=== PATIENT | female | born 1960 | race Caucasian/White ===

== ENCOUNTER 2022-01-01 12:40 | Emergency (ER) | payer MEDICAID, SELFPAY ==
[2022-01-01 12:46] VITALS: BP 104/85; PULSE 65; TEMP 36.7; O2SAT 97
--- NOTE | 2022-01-01 13:00 | DI.RAD_ITS ---
Exam(s) XR KNEE LT 3V AP,LAT,RAVEN EXAM: XR KNEE LT 3V AP,LAT,RAVEN CLINICAL HISTORY: pain medially, swelling. TECHNIQUE: 2D digital imaging was performed. COMPARISON: No exams were available for comparison FINDINGS: Three views of the left knee reveal no evidence of fracture. There is small amount of increased join t fluid. No obvious degenerative changes. Bone density normal. No osseous lesions. Incidentally noted is soft tissue swelling medial of the knee, without evidence of radiopaque foreign body nor calcification at this level. IMPRESSION: There appears to be soft tissue swelling in the subcutaneous tissues medial of the knee. No fracture. No prominent joint effusion DATA REPOSITORY: RADIATION DOSE DELIVERED:
--- NOTE | 2022-01-01 13:09 | W.ED.GENAD ---
Discharge Plan Disposition Patient Disposition: HOME Condition: Stable Discharge Details Clinical Impression: Effusion of knee, Internal derangement of knee Primary Care Provider: Unknown,Unknown ED Provider: Nanette Mcknight Home Meds and New Rx's Prescriptions: New diclofenac sodium 3 % gel 1 applic topical BID Qty: 100 0RF Discharge Instructions Additional Instructions: Please follow-up with the orthopedist Voltaren gel Take ibuprofen 400 mg every 8 hours with food Take Tylenol for breakthrough pain I am giving a very small amount of opiate analgesia, this medication is addictive and can cause constipation I recommend picking up a cane to pharmacy to take the pressure off the affected knee Apply ice or heat whatever feels better 2 hours after Please return earlier should you have new or worsening complaints Referrals: Too Bishop MD [ [facility] STAFF PHYSICIAN] - Discharge Data Discharge Date/Time-TO BE ENTERED AT DEPARTURE: 01/01/22 15:09 Medical Decision Making Given the chronicity of patient's symptoms, she is referred to orthopedics She is given Voltaren gel No evidence of septic joint No overlying erythema Her x-ray did not show significant acute abnormality Have knee immobilizer at home Have a cane which she will use Return precautions discussed and patient expressed understanding Medical Records Medical records reviewed: Yes I reviewed the patient's medical records. HPI General Date/Time Provider Initiated Documentation: 01/01/22 12:53. HPI Narrative: this 61-year-old female who is otherwise healthy presents for left knee pain. Patient states she has had similar pain in the past but is worsening. She denies any chest pain or shortness of breath. She denies any dizziness or weakness. She states that the pain radiates up and down her leg. Is predominantly in her kneecap. Worse when with flexion and extension. She denies any fever or chills. Denies history of IV drug abuse. Denies history of coagulopathy. She denies any skin discoloration or swelling. She been attempting to wear a knee brace without relief in her symptoms. Related Data Home Medications Medication Instructions Recorded Confirmed diclofenac sodium 3 % topical gel 1 applic TOPICAL BID #100 g 01/01/22 Previous Rx's Medication Instructions Recorded diclofenac sodium 3 % topical gel 1 applic TOPICAL BID #100 g 01/01/22 Allergies Allergy/AdvReac Type Severity Reaction Status Date / Time No Known Allergies Allergy Unverified 01/01/22 12:51 General Stated Complaint: Orthopedic SARTHAK: 3 Review of Systems All systems reviewed & are unremarkable except as noted in HPI and below PFSH All Active Problems (Updated 01/01/22 @ 14:51 by GEMMA Guzman) Effusion of knee (Acute) Internal derangement of knee (Acute) Social History Smoking/Tobacco Use Status: Former Tobacco Use Smoking risk assessment performed?: Yes Alcohol Intake: former Drug use: Never Substance use type: does not use Do you feel safe at home: Yes Do you feel safe in your relationship?: Yes Exam Const General: cooperative, comfortable and no acute distress Extrem Other: Distal pulses intact, no popliteal tenderness, no swelling noted, tenderness medially, no joint instability No overlying erythema, no crepitus No tenderness to left hip, groin, or left ankle Course Vital Signs Vital signs: Vital Signs Temperature 36.7 C 01/01/22 12:46 Pulse 65 01/01/22 12:46 Blood Pressure 104/85 01/01/22 12:46 Pulse Oximetry 97 01/01/22 12:46 Temperature 36.7 C 01/01/22 12:46 Temperature Source Temporal Artery Scan 01/01/22 12:46 Pulse 65 01/01/22 12:46 Respiratory Effort Non-Labored 01/01/22 12:52 Blood Pressure 104/85 01/01/22 12:46 Blood Pressure Position Sitting 01/01/22 12:46 Pulse Oximetry 97 01/01/22 12:46 Oxygen Delivery Method Room Air 01/01/22 12:46 Oxygen Flow Rate 0 01/01/22 12:46
[2022-01-01] MEDS: HYDROcodone 5/Acetaminophen 325 TAB PO (13:15)
[2022-01-01 15:05] VITALS: BP 104/85; PULSE 65; TEMP 36.7; O2SAT 97
== END 2022-01-01 15:09 | disposition home or self-care (01) ==
PROVIDERS: Emergency Provider Physician Assistant
DX: M25.462 Effusion, left knee (principal); M23.92 Unspecified internal derangement of left knee
CPT/HCPCS: 73562; 99283

== ENCOUNTER 2022-01-25 15:26 | Outpatient (REF) | payer MEDICAID, SELFPAY ==
--- NOTE | 2022-01-25 14:50 | PAPFT_PTH ---
PATIENT: Rosie Santiago LOC: [facility]#:[id number] AGE/SX: 61/F ROOM: RE01/25/[address]: Gael Barksdale : 1960 BED: DIS: 01/25/2022 SPEC #: [id number] RECD: 01/28/22 13:10 STATUS: SHARIF REQ #: [id number] RALPH: 01/25/22 14:[address]: Gael Barksdale DEPT: [facility] Cytology RECD BY: Nanette Tanner ENTERED: 01/28/22 13:11 SP TYPE: PAPFT OTHR DR: Unknown,Unknown Tissues: 1 - CX/ENDOCX FOR PAP SMEARS Procedures: PAP THIN PREP/UVM Screening HPV DNA PROBE Comments: [id number]
== END 2022-01-25 15:27 | disposition home or self-care (01) ==
LOC: NCHCN 15:26
PROVIDERS: Visit Provider Family Medicine
DX: Z12.4 Encounter for screening for malignant neoplasm of cervix (principal); Z11.51 Encounter for screening for human papillomavirus (HPV); Z01.419 Encounter for gynecological examination (general) (routine) without abnormal findings
CPT/HCPCS: 88142; 87624

== ENCOUNTER 2022-02-06 02:07 | Outpatient (CLI) | payer MEDICAID, SELFPAY ==
--- NOTE | 2022-02-06 07:00 | DI.MRI_ITS ---
Exam(s) MR LOWER JOINT LT WO EXAM: MR LOWER JOINT LT WO CLINICAL HISTORY: continued Left knee pain,INTERNAL DERANGEMENT, M23.90. TECHNIQUE: Multiplanar multisequence MRI was performed. COMPARISON: CR XR KNEE LT 3V AP,LAT,RAVEN from 01/01/2022 FINDINGS: BONES: Contusion medial femoral condyle. Minimal edema medial tibial plateau. JOINTS: A moderate-sized effusion is present. Cartilage: Thinning and irregularity over the medial femoral condyle and medial tibial plateau. Smal l linear defect at the patellar apex. TENDONS: Extensor mechanism: Unremarkable. Medial retinaculum: Unremarkable. Lateral retinaculum: Unremarkable. Popliteus: Unremarkable. MUSCLES: Unremarkable. MENISCI: The medial meniscus is somewhat peripherally displaced and shows a horizontal tear of the posterior horn and body.. The lateral meniscus is unremarkable. SOFT TISSUES: Gauirre's cyst, 6.5 cm in length. LIGAMENTS: Anterior Cruciate: U some edema and near tibial attachment, question partial tear.. Posterior Cruciate: Unremarkable. Medial Collateral:Edema near femoral attachment. No full-thickness tear. Lateral Collateral ligament complex: Unremarkable. IMPRESSION: Medial meniscal tear. Question partial tear anterior cruciate ligament Sprain medial collateral ligament. Contusion medial femoral condyle and medial tibial plateau. Aguirre's cyst. DATA REPOSITORY:
== END 2022-02-06 02:27 ==
PROVIDERS: Visit Provider Student in an Organized Health Care Education/Training Program
DX: M25.562 Pain in left knee; M23.8X2 Other internal derangements of left knee; M25.462 Effusion, left knee; S83.242A Other tear of medial meniscus, current injury, left knee, initial encounter; S83.412A Sprain of medial collateral ligament of left knee, initial encounter; M71.22 Synovial cyst of popliteal space [Baker], left knee
CPT/HCPCS: 73721

== ENCOUNTER 2022-03-04 18:12 | Outpatient (REF) | payer MEDICAID, SELFPAY ==
[2022-03-04 17:37] LABS: HCT 42.1 % (36.0-46.0); HGB 13.7 g/dL (11.2-15.7); MCH 32.2 pg (27.0-33.0); MCHC 32.5 % (32.0-36.0); MCV 99 fL (80-95); MPV 9.4 fL (8.0-11.0); Platelet Count 277 10^3/uL (130-400); RBC 4.25 10^6/uL (3.93-5.22); RDW 12.8 % (11.7-14.6); RDW-SD 46.1 fL; WBC 4.74 10^3/uL (4.4-10.8)
[2022-03-04 18:01] LABS: ALT 13 U/L (14-59); AST 16 U/L (15-37); Albumin 3.4 g/dL (3.4-5.0); Alkaline Phosphatase 57 U/L (46-116); Anion Gap 9.7 mmol/L (3-11); BUN 22 mg/dL (7-18); Bilirubin, Total 0.6 mg/dL (0.2-1.0); CO2 26.3 mmol/L (21.0-32.0); Calcium 8.7 mg/dL (8.5-10.1); Calculated LDL 177 mg/dL (<100); Chloride 108 mmol/L (98-107); Cholesterol 250 mg/dL (<200); Estimated GFR 56.56 (mL/min/1.73m2); Glucose 85 mg/dL (74-106); HDL Cholesterol 58 mg/dL (40-60); Potassium 4.2 mmol/L (3.5-5.1); Sodium 144 mmol/L (136-145); Total Protein 6.6 g/dL (6.4-8.2); Triglyceride 78 mg/dL (<150)
== END 2022-03-04 18:13 | disposition home or self-care (01) ==
LOC: NCHCN 18:12
PROVIDERS: Visit Provider Family Medicine
DX: E66.9 Obesity, unspecified (principal); Z13.220 Encounter for screening for lipoid disorders; Z00.00 Encounter for general adult medical examination without abnormal findings
CPT/HCPCS: 80053; 80061; 85027

== ENCOUNTER 2022-03-13 11:11 | Outpatient (CLI) | payer MEDICAID, SELFPAY ==
--- NOTE | 2022-03-13 09:30 | DI.RAD_ITS ---
Exam(s) XR STANDING ALIGNMENT EXAM: XR STANDING ALIGNMENT CLINICAL HISTORY: standing alignment. TECHNIQUE: 2D digital imaging was performed. COMPARISON: CR XR KNEE LT 3V AP,LAT,RAVEN from 01/01/2022 FINDINGS: There is narrowing of the medial compartments of both knees, this being more prominent on the right s paddy and more moderate on the left side. There are no obvious marginal osteophytes. Lateral compartm ent of both knees exhibit normal height and no marginal osteophytes. Both hips appear unremarkable. SI joints unremarkable. Ankles unremarkable. Bone density normal. No osseous lesions. IMPRESSION: Narrowing of the medial compartments of both knees, more prominent on the right side. DATA REPOSITORY: RADIATION DOSE DELIVERED:
== END 2022-03-13 11:12 | disposition home or self-care (01) ==
LOC: DIORS 11:12
PROVIDERS: PCP Family Medicine; Referring Provider Family Medicine; Visit Provider Student in an Organized Health Care Education/Training Program
DX: M25.861 Other specified joint disorders, right knee; M25.862 Other specified joint disorders, left knee; S83.242A Other tear of medial meniscus, current injury, left knee, initial encounter
CPT/HCPCS: 77073

== ENCOUNTER 2022-04-01 17:29 | Outpatient (REF) | payer MEDICAID, SELFPAY ==
[2022-04-01 21:10] LABS: TSH (W/Ref FT4) 1.21 uIU/mL (0.36-3.74)
[2022-04-03 10:58] LABS: Lyme Ab w Rflx to Lyme Confirm Negative (Negative)
[2022-04-05 00:02] LABS: Anaplasma phagocytophilum Negative (Negative); B. miyamotoi PCR Negative (Negative); Babesia divergens/MO-1 Negative (Negative); Babesia duncani Negative (Negative); Babesia microti Negative (Negative); Ehrlichia chaffeensis Negative (Negative); Ehrlichia ewingii/canis Negative (Negative); Ehrlichia muris eauclairensis Negative (Negative)
== END 2022-04-01 17:30 | disposition home or self-care (01) ==
LOC: NCHCN 17:29
PROVIDERS: Visit Provider Family Medicine
DX: R53.83 Other fatigue (principal); R00.2 Palpitations
CPT/HCPCS: 87798; 84443; 86618

== ENCOUNTER → 2022-04-08 02:12 | Outpatient (CLI) | payer MEDICAID, SELFPAY ==
--- NOTE | 2022-04-08 11:00 | DI.MAMMO_ITS ---
Exam(s) MAMMO SCREENING EXAM: MAMMO SCREENING CLINICAL HISTORY: SCREENING FOR BREAST CANCER Z12.39 TECHNIQUE: Mammograms were interpreted according to the usual protocol including computer analysis w [employer] CAD system, tomosynthesis and C-view imaging. Implant displaced views were performed in addition to the routine views. COMPARISON: None available FINDINGS: The breasts are composed of mainly fatty density , Breast Density category A. There are bilateral subglandular breast implants which appear intact. No suspicious masses or suspicious microcalcifications are seen. No skin thickening or abnormal axillary lymph nodes are seen. IMPRESSION: BI-RADS Category 1, Negative mammogram Yearly screening mammography is recommended. Breast Density - Category A, fatty density. A negative radiographic report should not delay biopsy if a dominant or clinically suspicious mass is present. Up to ten percent of cancers are not identified on mammography. A negative report may reinforce clinical impression. Adenosis and dense breasts may obscure an underlying neoplasm. False positive reports average 6 to 10%. Patient will receive a letter notifying them of these results.
== END ==
PROVIDERS: PCP Family Medicine; Visit Provider Family Medicine
DX: Z12.31 Encounter for screening mammogram for malignant neoplasm of breast (principal); Z98.82 Breast implant status
CPT/HCPCS: 77063; 77067

== ENCOUNTER 2022-04-30 02:53 | Outpatient (CLI) | payer MEDICAID, SELFPAY ==
[2022-04-30 15:22] LABS: Source Nasal/Nares
[2022-05-01 05:39] LABS: COVID-19 PCR Negative (Negative)
== END 2022-04-30 02:54 | disposition home or self-care (01) ==
LOC: LBO 02:53
PROVIDERS: Visit Provider Student in an Organized Health Care Education/Training Program
DX: Z20.822 Contact with and (suspected) exposure to COVID-19 (principal); Z01.818 Encounter for other preprocedural examination
CPT/HCPCS: 87635

== ENCOUNTER 2022-05-02 06:17 | Day surgery (SDC) | payer MEDICAID, SELFPAY ==
--- NOTE | 2022-05-01 14:55 | NUR.NOTE ---
LMx2 unable to reach patient left NPO instructions and arrival time for 0615, Ortho office aware. Nursing Note:
[2022-05-02] VITALS (16 sets, daily range): BP systolic 90–145; BP diastolic 54–89; PULSE 49–65; RESP 10–18; TEMP 36–36.7; O2SAT 93–100; BMI 22.0
[2022-05-02] MEDS: Gabapentin 300 MG CAP (06:41)
--- NOTE | 2022-05-02 07:02 | W.ANESPRE ---
General Info Date of Service Date Performed: 05/02/22 Height: 5 ft 10 in Weight: 69.6 kg Body Mass Index (BMI): 22.0 Surgical Procedure: Operation Date: 05/02/22 08:00 Proposed Procedure Side Surgeon p Medial Unicondylar Knee Arthroplasty, any other indicated procedures including removal of foreign body Left Peter Liu MD Meds Allergies and Home Medications Allergies Allergy/AdvReac Type Severity Reaction Status Date / Time No Known Allergies Allergy Verified 05/02/22 06:25 Home Medication Medication Instructions Recorded Unknown [No Known Home Meds] 03/13/22 Current Visit Medications: Current Medications Generic Name Dose Route Start Last Admin Trade Name Freq PRN Reason Stop Dose Admin Ringer's Solution 1,000 mls @ 100 mls/hr 05/02/22 06:00 IV 05/31/22 23:59 INFUSION JENIFFER Cefazolin Sodium/Dextrose 2 gm in 50 mls @ 100 mls/hr 05/02/22 06:00 Ancef Duplex IVPB 05/02/22 16:00 PREOP JENIFFER Tranexamic Acid 1,000 mg/ 60 mls @ 360 mls/hr 05/02/22 06:00 Sodium Chloride IVPB 05/02/22 16:00 PREOP JENIFFER IV Miscellaneous Supplies 1 each 05/02/22 06:00 Iv Access IV 05/31/22 23:59 DIRECTED JENIFFER Sodium Chloride 0 ml 05/02/22 06:00 Normal Saline Flush 10 Ml Syr IV 05/31/22 23:59 PRN PRN Sodium Chloride 0 ml 05/02/22 06:00 Normal Saline 10 Ml Vial IJ 05/31/22 23:59 DIRECTED PRN Sterile Water 0 ml 05/02/22 06:00 Water,Injection,Sterile 10 Ml Vial IJ 05/31/22 23:59 DIRECTED PRN PFSH Active Problems Active Problems: Problem Status Onset Code Tear of medial meniscus of left knee S83.242A Surgical History Surgical History (Updated 05/02/22 @ 06:25 by Zuleima Charlton) History of appendectomy Tobacco Smoking/Tobacco Use Status: Former Tobacco Use Alcohol Alcohol Intake: former Substance Use Substance use: Never Substance use type: does not use Vital Signs and Lab Results Vital Signs Most Recent Vital Signs in EMR: Most Recent Vital Signs Temp Pulse Resp BP Pulse Ox 36.4 C L 65 18 114/66 97 05/02/22 06:26 05/02/22 06:26 05/02/22 06:26 05/02/22 06:26 05/02/22 06:26 Lab Results Blood Type / Crossmatch: No Data to Display Complete Blood Count: No Data to Display Complete Metabolic Panel: No Data to Display Liver Function Panel: No Data to Display Coagulation Panel: No Data to Display Cardiac Panel: No Data to Display Arterial Blood Gas: No Data to Display Venous Blood Gas: No Data to Display Pancreas Panel: No Data to Display Thyroid Panel: No Data to Display Infectious Disease: Coronavirus (COVID-19)(PCR) Negative (Negative) 04/30/22 13:38 Coronavirus 2019 Source Nasal/Nares 04/30/22 13:38 Blood Cultures: No Data to Display Toxicology Panel: No Data to Display Anesthesia Assessment and Plan Anesthesia History Personal History: No History of Anesthesia Complications Family History: No Family History of Anesthesia Complications Exercise Tolerance Exercise Tolerance: Metabolic Equivalents>4 Pertinent Negatives Pertinent Negatives: No Symptoms of GERD, No Major Cardiovascular Symptoms or Complaints and No Major Pulmonary Symptoms or Complaints (Mild COPD, Quit smoking 10/16 20 year 1/3 pk per day ) Cardiac & Pulmonary Exam Cardiac Exam: Normal S1/S2 Heart Sounds Pulmonary Exam: Clear Bilateral Breath Sounds Implantable Cardiac Device Does patient have a Pacemaker or an ICD?: No Airway Exam Known Difficult Airway: No Mallampati Class: 1 Mouth Opening: Normal (> 3cm) Thyromental Distance: Greater than 3 cm Neck Range of Motion: Full ROM Neck Circumference: Normal Teeth Condition: Normal Dentition Airway Comments: #13 crowned ASA Classification ASA Score: ASA 2 Emergency Case?: No NPO Status NPO Status: NPO Clears >2 hours, Solids >8 hours Anesthesia Plan Resuscitation Status: Full Code Anesthesia Technique: General Anesthesia Airway Planned: LMA Monitors Used: Standard Monitors
[2022-05-02] MEDS: Lactated Ringers 1,000 ML 100 ML IV (07:07)
[2022-05-02] MEDS: Acetaminophen 500 MG TAB 1000 MG PO (07:07)
[2022-05-02] MEDS: Celecoxib 200 MG CAP 400 MG PO (07:08)
[2022-05-02] MEDS: ceFAZolin 2 GM/50 ML BAG IVPB (07:37)
--- NOTE | 2022-05-02 07:49 | W.ANESNERVE ---
Nerve Block Single Injection Procedure Date and Time Date Performed: 05/02/22 Procedure Start: 07:15 Location Where Procedure Performed Procedure Location: Day Surgery Unit (215) Reason Performed: Postoperative Analgesia Requesting Provider: Peter Liu Timeout Performed Timeout Performed: Yes Monitoring Used ECG, Blood Pressure and SpO2 Sterility Sterility: Hand Hygiene, Surgical Cap, Surgical Mask, Sterile Gloves, Eye Protection and Chlorhexidine Sedation Given During Procedure Sedation Given (Indicate Dose Given): Versed IV Dose:: 2 mg Patient Mental Status Patient Mental Status: Sedate with meaningful communication Nerve Block 1st Nerve Block: Laterality: Left Block Type: Adductor Canal Needle / Catheter Used: 100mm SonoPlex II Local Anesthetic Bolus (Indicate Dose Given): Lidocaine used for local infiltration of skin, Injected in 3-5ml increments after negative blood aspiration and Bupivacaine 0.25% Dose:: 15 cc Additives (Indicate Dose Given): None Ultrasound: Sterile probe cover and gel used Ultrasound Image Saved?: Yes Nerve Stimulator: Not Used Paresthesia: None Post Procedure Pain score (0-10): 0 Procedure Tolerated: No Complications and Patient tolerated well Procedure Outcome: Successful Performed By: Rafita Conti
--- NOTE | 2022-05-02 08:00 | ROE_ITS ---
Operative Note Operative Note DATE OF PROCEDURE: 05/02/22 PRE-OP DIAGNOSIS: 1. Left knee medial compartmental arthritis 2. Prepatellar foreign body POST-OP DIAGNOSIS: same PROCEDURE: 1. Left knee medial unicompartmental arthroplasty, CPT # 57786 2. Removal of foreign body, CPT # 13774 The assistant federal public defender was medically required as this procedure involves retraction, protection of neurovascular structures, and manipulation of multiple instruments and implants at the same time, which cannot be done without a skilled assistant federal public defender. SURGEON: Peter Liu [employer] SCHOOL TUTOR: Shaunna Hong ANESTHESIA TYPE: General LMA/ETT and Primary Nerve Block Refer to Anesthesia Record ESTIMATED BLOOD LOSS: 75 TOURNIQUET TIME: 0 COMPLICATIONS: None Patient was transported to: PACU Patient's condition: stable Implants: De[employer] Sigma HP partial knee size 3 metal-backed tibial tray, 7 mm tibial insert fixed bearing, size 3 femoral component Indications: Please see complete medical record for details. 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 Intact ACL. Intact lateral compartment Procedure Description: The patient was taken to the operating room and transferred to the operating room table. General anesthesia was induced. All bony prominences were well- padded. Preoperative antibiotics and 1 g TXA were administered. A tourniquet was placed loosely over padding high on the patient's thigh. The knee and lower extremity were prepped and draped in the usual sterile fashion. The correct patient, procedure, and side of the procedure were all verified prior to incision. A slightly medial of midline longitudinal approach was used to the knee extending from the superior pole the patella to the distal aspect of the tibial tubercle. The quadriceps tendon, patella borders, and patellar tendon were exposed. Knee palpable somewhat mobile loose body anterior to the patella had been digitally localized. It appeared to be a pea-sized calcified fat deposit. There was easily shelled out and removed in entirety. There was no concerning fat, soft tissue or skin extension. It was well circumscribed. A full-thickness arthrotomy was performed starting splitting the quadriceps tendon and leaving a sleeve of tissue on the medial aspect of the patella and taking care to progress along the medial margin the patellar tendon. The MCL was elevated off the proximal medial tibia. The tibial alignment jig was set in place on the anterior medial aspect of the tibia and carefully adjusted to achieve proper alignment in the coronal and sagittal planes. Reciprocating saw was used to create the vertical cut at the medial aspect of the medial tibial eminence taking care to protect the ACL ligament footprint. The transverse cut was then done using the microsagittal saw through the jig taking care to retract and protect the MCL. The bone piece and cut were inspected and found to be appropriate for patient anatomy. A box rasp was used to clean up the cut especially the L component. The 7 mm spacer block was inserted and found to have good equal stability in full extension and 90 degrees of flexion with approximately 2 mm of joint space opening in 20-30 degrees of flexion. With the knee in extension, the tibial trial spacer block was used to cassandra the rotational alignment and anterior extent of the femoral c omponent. The spacer block was removed and the tibia was sized with the depth gauge. The distal femoral cutting block was inserted taking care to orient it appropriately. The cut was done using the saw through the guide. The guide was removed, and the femur was sized with the femoral sizing blocks. The appropriate sized cutting jig was selected. Care was taken to ensure the block was flush with the resected distal femur bone surface. A curved gouge was used to cut the profile of the proximal tip of the femoral prosthesis, cassandra the extent of the anterior chamfer cut, and prevent trochlear cartilage delamination. The posterior cut was done through the jig, the anterior cut was done using the osteotomes, the posterior chamfer cut was done through the jig, and the drill was used to drill the 2 peg holes. The cutting block and bone cuts were removed. The medial meniscus remnant was removed. The femoral component trial was placed in the distal femur and the 7 mm spacer block confirmed appropriate balancing in flexion, extension, and again 2 mm of medial joint space opening in 20-30 degrees of flexion. Tibial template was inserted and the size confirmed to be appropriate. The keel was used by hand to remove bone from the slot and the tibial peg drill was used in the peg hole. The pulse lavage was used to clean the bone surfaces. SmartSet medium viscosity cement was prepared. At the appropriate time during the early working phase, the cement was applied to the backside of the tibial and femoral components. Then, cement was carefully placed and pressurized into the proximal tibia taking care to only have minimal cement posteriorly. The tibial component was inserted at an angle and then impacted directing pressure from posterior to anterior to keep the flow of cement from posterior to anterior. Cement was then applied to the distal femur and the femoral component impacted. Excess cement was removed. The knee was brought into full extension and this position with axial load was maintained until the cement was completely hardened at 18 minutes. Tibial tray separator inserter was removed, and the final tibial insert was inserted and clicked into place. The knee was tested through range of motion found to be stable with equal balancing from full extension to flexion past 90 degrees and a couple millimeters of medial joint space opening in 20-30 degrees of flexion. The wound was copiously irrigated with the pulse lavage and then Irrisept. A combination 266 mg Exparel, 30 mg ketorolac, and 50 mL bupivicaine 0.25% pain injection was widely infiltrated about the knee. Appropriate hemostasis was achieved. The capsule was approximated using #1 Vicryl in a figure-of-8 interrupted fashion and then closed using Stratafix #1 PDS barbed suture in a running fashion. The superficial layers were irrigated. Subcutaneous tissue was closed using 2-0 Monocryl in a buried interrupted fashion. Skin was closed using 3-0 Monocryl in a buried subcuticular fashion. The skin incision was glued and then covered with a Mepilex Ag dressing. An James wrap was applied from the foot up to the thigh. The patient awoke from anesthesia without complication was transferred to the recovery room in stable condition.
--- NOTE | 2022-05-02 10:28 | W.PM.DSUDISC ---
Discharge Plan Disposition Patient Disposition: HOME Condition: Stable Discharge Details Reason For Visit: Left knee surgery Attending Provider: Peter Liu Primary Care Provider: Unknown,Unknown Home Meds and New Rx's Prescriptions: New naproxen 250 mg tablet 250 - 500 mg PO BID PRNQty: 40 0RF Rx Instructions: take with a meal aspirin 81 mg tablet,delayed release (DR/EC) 81 mg PO BID 30 Days Qty: 60 0RF oxycodone 5 mg tablet 5 - 10 mg PO Q4H MDD 30 mg PRN (Reason: moderate to severe pain) Qty: 18 0RF Discharge Instructions Additional Instructions: Surgery: Left medial unicondylar knee replacement Activity: Weightbearing as tolerated. Recommend elevation to minimize swelling and discomfort. Walk as comfort allows. May use walker as needed for a few weeks. Important to restore full knee extension as soon as possible. May gently progress knee flexion over the next few weeks. Do not rest with pillows behind knee to prevent knee from getting stuck bent. Physical therapy prescription will be sent electronically. Prescriptions: Aspirin 81 mg take 1 twice a day to prevent a blood clot 30 days Naproxen 250 mg take 1-2 every 12 hours with a meal as needed for moderate pain Oxycodone 5 mg take 1-2 every 4-6 hours as needed for severe pain You may use fqlr-nbr-mzfeill Tylenol (acetaminophen) as needed for mild pain. These pain medications may be taken all at once or in different combinations as needed. Also, recommend Colace (docusate) as a stool softener as surgery and pain medicine cause constipation. You may try hfwm-snl-rdzmboo diphenhydramine (Benadryl) 25-50 mg nightly as a sleep aid Dressings: Leave Band-Aid in place until follow-up. Keep clean and dry at all times. May remove James wrap tomorrow. May re-wrap with James wrap to help control swelling as needed. Follow-up: 10-[address] Liu You may take off the leg compression James wrap and stockings tomorrow at home. You may also leave them on a few days longer if you have a history of leg swelling or edema. Let us know right away if you develop any redness, drainage, fevers, chest pain, or trouble breathing. Do not drink alcohol or drive for at least 24 hours after anesthesia. Please call the office during business hours with any questions or concerns. Discharge Orders Discharge Orders: Discharge Order (Routine); Ordered 05/02/22 Ordered By: Peter Liu DS: Diagnosis Discharge Diagnosis (1) Arthritis of knee, left: Status: Acute (2) Foreign body of left knee: Status: Acute
[2022-05-02] MEDS: fentaNYL 100 MCG/2 ML VIAL IVP ×3 (11:09→11:33)
[2022-05-02] MEDS: HYDROmorphone 2 MG/ML VIAL IVP ×2 (11:20→11:35)
[2022-05-02] MEDS: Normal Saline 10 ML VIAL IJ (11:20)
--- NOTE | 2022-05-02 11:30 | DI.RAD_ITS ---
Exam(s) XR KNEE LT 2V AP,LAT EXAM: XR KNEE LT 2V AP,LAT CLINICAL HISTORY: Portable in PACU postop. TECHNIQUE: 2D digital imaging was performed. COMPARISON: CR XR KNEE LT 3V AP,LAT,RAVEN from 01/01/2022 FINDINGS: Two views: Postop AP and lateral views reveal satisfactory position alignment of the components of the medial he miarthroplasty. No fracture or loosening evident. IMPRESSION: DATA REPOSITORY: RADIATION DOSE DELIVERED:
[2022-05-02] MEDS: Lactated Ringers 1,000 ML 30 ML IV (11:50)
[2022-05-02] MEDS: Midazolam 2 MG/2 ML VIAL IVP (11:51)
[2022-05-02] MEDS: Naproxen 500 MG TAB PO (15:09)
--- NOTE | 2022-05-02 15:50 | W.ANESPOSTOP ---
Postoperative Evaluation Date, Time and Location Date Performed: 05/02/22 Time Performed: 15:41 Patient Location: Day Surgery Unit Vital Signs Most Recent Imported Vital Signs: Most Recent Vital Signs Temp Pulse Resp BP Pulse Ox 36.6 C 60 16 117/82 99 05/02/22 15:15 05/02/22 15:15 05/02/22 15:15 05/02/22 15:15 05/02/22 15:15 Pain Score Most Recent Pain Score: Most Recent Pain Score Pain Level 8 05/02/22 15:15 Assessment Mental Status: Awake (Alert & Oriented to Patient Baseline) Airway and Respiratory Function: Patent airway with normal (patient baseline) respiratory exam Cardiovascular Function: Hemodynamically Stable Hydration Status: Adequately Hydrated Nausea & Vomiting: No Nausea or Vomiting Pain: Pain is tolerable per patient (Pain level has decreased since up in room, thigh discomfort much reduced. Patient feels comfortable with managing her pain at home) Peripheral Nerve Block: Regional nerve block not resolved at time of post operative discharge
== END 2022-05-02 16:03 | disposition home or self-care (01) ==
PROVIDERS: Visit Provider Student in an Organized Health Care Education/Training Program
PROC: (CPT 27446; principal; 2022-05-02 07:30)
DX: M17.12 Unilateral primary osteoarthritis, left knee (principal); M23.232 Derangement of other medial meniscus due to old tear or injury, left knee; M23.42 Loose body in knee, left knee
CPT/HCPCS: 27446; 27331; 76942; 73560; J0690; J1100; J2250; J2405; J3010

== ENCOUNTER 2022-05-03 20:58 | Emergency (ER) | payer MEDICAID, SELFPAY ==
[2022-05-03] MEDS: HYDROmorphone 2 MG/ML VIAL 1 MG IVP (21:20)
[2022-05-03 21:22] VITALS: BP 127/103; PULSE 67; RESP 20; TEMP 36.7; O2SAT 97
[2022-05-03] MEDS: ACETAMINOPHEN 1,000 MG/100 ML BTL 400 MG IVPB (23:02)
--- NOTE | 2022-05-03 23:55 | W.ED.GENAD ---
Discharge Plan Disposition Patient Disposition: HOME Condition: Improving Discharge Details Clinical Impression: Post-operative pain Primary Care Provider: Unknown,Unknown ED Provider: Carson Will Home Meds and New Rx's Prescriptions: No Action naproxen 250 mg tablet 250 - 500 mg PO BID PRNQty: 40 0RF Rx Instructions: take with a meal aspirin 81 mg tablet,delayed release (DR/EC) 81 mg PO BID 30 Days Qty: 60 0RF oxycodone 5 mg tablet 5 - 10 mg PO Q4H MDD 30 mg PRN (Reason: moderate to severe pain) Qty: 18 0RF Discharge Instructions Additional Instructions: Continue to take your normally prescribed pain medication and you may also use [id number] acetaminophen as directed on the bottle. If you develop fever, significant change in symptoms, or have any further concerns feel free to return to the emergency department for reassessment otherwise follow-up with your orthopedist if not showing signs of improvement. Referrals: Peter Liu MD [ [facility] STAFF PHYSICIAN] - Discharge Data Discharge Date/Time-TO BE ENTERED AT DEPARTURE: 05/04/22 00:01 Medical Decision Making Patient presenting to the emergency department for chief complaint of left knee pain. Patient has been partial knee replacement of her left knee yesterday and was sent home with pain medication. Patient does state that she may have overused it last night while on the nerve block. Today she had increased worsening shooting and burning pain of her left knee and surrounding area. Patient denies fever chills, or other symptoms but does admit that pain is increased by any movement of the extremity. Physical exam is unremarkable and shows no signs of obvious postoperative infection, normal sensation pulm and movement of the toes and distal extremity, no other worrisome findings are noted. Suspect that patient may have overuse the extremity yesterday evening which is now resulted in increased discomfort. We will plan on treating patient's pain with hydromorphone IV Reassessed patient after 1 mg of hydromorphone IV and still continues to have significant pain but is slightly hypotensive with blood pressures in the 80s over upper 40s. No signs of respiratory distress are noted. Will give patient IV fluids and monitor pressure along with pain response Patient reassessed and had some improvement of pain but continues to have soft pressure. Will give IV acetaminophen and again continue to monitor. Reassessed patient and patient did start to note some improvement of pain and discomfort. Do feel that patient is appropriate for discharge. Did discuss with patient realistic activity level along with pain level postoperatively. Did encourage her to ambulate at her discretion but at the same time to ensure plenty of rest. After discussion of diagnosis and plan of care patient has no further needs, questions, or concerns and states clear understanding to return to the emergency department for any worsening symptoms. This documentation was generated using [email or web address] system, please disregard any oddities of phrase or misspellings. Medical Records Medical records reviewed: Yes I reviewed the patient's medical records. HPI General Mode of arrival: wheelchair. Date/Time Provider Initiated Documentation: 05/03/22 21:08. Limitations to Documentation: no limitations. Information obtained by: patient, family, RN notes reviewed and old records reviewed. History of Present Illness 61 year old F presents to the emergency department with the chief complaint of postop knee pain, described as severe, with intensity rated at >10. Quality is described as constant, and is localized to the left and lower extremity. Patient started experiencing this hour(s) (all day) and it has been constant. No relieving factors improve symptom(s), Movement worsens symptoms . Patient notes no other symptoms.. Patient did receive the following treatments prior to arrival, NSAID and other (oxycodone) Related Data Home Medications Medication Instructions Recorded Confirmed aspirin 81 mg tablet,delayed 81 mg PO BID Prevent blood clot 30 05/02/22 release days #60 tabs naproxen 250 mg tablet 250 - 500 mg PO BID PRN #40 tabs 05/02/22 oxycodone 5 mg tablet 5 - 10 mg PO Q4H PRN moderate to 05/02/22 severe pain #18 tabs Previous Rx's Medication Instructions Recorded aspirin 81 mg tablet,delayed 81 mg PO BID Prevent blood clot 30 05/02/22 release days #60 tabs naproxen 250 mg tablet 250 - 500 mg PO BID PRN #40 tabs 05/02/22 oxycodone 5 mg tablet 5 - 10 mg PO Q4H PRN moderate to 05/02/22 severe pain #18 tabs Allergies Allergy/AdvReac Type Severity Reaction Status Date / Time No Known Allergies Allergy Verified 05/02/22 06:25 General Stated Complaint: GenMedical SARTHAK: 3 Review of Systems Narrative: 8systems reviewed and unremarkable except what is marked below. Constitutional Constitutional: Denies chills and Denies fever(s) Musculoskeletal Musculoskeletal: Reports as per HPI Integumentary/Breasts Skin/Breast: Denies erythema and Denies rash PFSH All Active Problems Post-operative pain (Acute) Arthritis of knee, left (Acute) Medical History Foreign body of left knee Tear of medial meniscus of left knee Injected: 01/07/2022 Surgical History History of appendectomy Social History Smoking/Tobacco Use Status: Former Tobacco Use Smoking risk assessment performed?: Yes Alcohol Intake: former Drug use: Daily Substance use type: marijuana Do you feel safe at home: Yes Do you feel safe in your relationship?: Yes Exam Const General: cooperative and not ill appearing Orientation: alert, awake and oriented x3 HENMT Mouth: moist mucous membranes Resp Effort & Inspection: normal respiratory effort, able to speak in complete sentences and no respiratory distress Cardio Rate: regular rate Rhythm: regular rhythm Pulses: posterior tibial pulses present, dorsalis pedis present and normal peripheral pulses Skin General skin exam: no rashes or lesions noted Rashes: no rashes Wounds: wounds noted (Postoperative left knee) Neuro General: patient alert, patient awake, patient oriented x3, moves all extremities and no focal motor deficits Sensory Exam: no sensory deficits noted Extrem General: capillary refill normal and normal exam except as noted Left lower extremity: knee Details: tenderness, swelling and abnormal ROM Course Vital Signs Vital signs: Vital Signs Temperature 36.7 C 05/03/22: Pulse 67 05/03/22 21: Respiratory Rate 20 05/03/22 21:22 Blood Pressure 127/103 H 05/03/22 21:22 Pulse Oximetry 97 05/03/22 21:22 Temperature 36.7 C 05/03/22 21:22 Temperature Source Oral 05/03/22 21:22 Pulse 67 05/03/22 21: Respiratory Rate 20 07/08/22 21:22 Respiratory Effort 05/03/22 21:30 Blood Pressure 127/103 H 05/03/22 21:22 Blood Pressure Position Supine 05/03/22 21:22 Pulse Oximetry 97 05/03/22 21:22 Oxygen Delivery Method Room Air 05/03/22 21:22 Oxygen Flow Rate 0 05/03/22 21:22 Pain Level 10 05/03/22 21:42
== END 2022-05-04 00:01 | disposition home or self-care (01) ==
PROVIDERS: Emergency Provider Nurse Practitioner Family
DX: M25.562 Pain in left knee (principal); G89.18 Other acute postprocedural pain; Z96.652 Presence of left artificial knee joint
CPT/HCPCS: 96374; 96375; 99284; 99283; J0131

== ENCOUNTER 2022-05-15 09:36 | Outpatient (CLI) | payer MEDICAID, SELFPAY ==
--- NOTE | 2022-05-15 09:30 | DI.RAD_ITS ---
Exam(s) XR KNEE LT 2V AP,LAT EXAM: XR KNEE LT 2V AP,LAT INDICATION: LEFT KNEE F/U. COMPARISON: CR XR KNEE LT 2V AP,LAT from 05/02/2022 TECHNIQUE: 2D digital imaging was performed. Two views. FINDINGS: There has been no change in the medial femoral tibial joint space prosthesis. No abnormal bony lucen cies are seen. The lateral femoral tibial joint is well maintained. DATA REPOSITORY: RADIATION DOSE DELIVERED:
== END 2022-05-15 09:37 | disposition home or self-care (01) ==
LOC: DIORS 09:36
PROVIDERS: PCP Family Medicine; Referring Provider Family Medicine; Visit Provider Student in an Organized Health Care Education/Training Program
DX: M25.562 Pain in left knee (principal)
CPT/HCPCS: 73560

== ENCOUNTER 2022-06-24 12:24 | Outpatient (REF) | payer MEDICAID, SELFPAY ==
--- NOTE | 2022-06-24 11:30 | SKI_PTH ---
PATIENT: Rosie Santiago LOC: NCN #:[id number] AGE/SX: 61/F ROOM: RE06/24/[address]: Gael Barksdale : 1960 BED: DIS: 06/24/2022 SPEC #: [id number] RECD: 06/24/22 16:53 STATUS: SHARIF REQ #: [id number] RALPH: 06/24/22 11:[address]: Gael Barksdale DEPT: Surgical Specimen RECD BY: Nanette Tanner Tissues: 1 - SKIN BIOPSY(SHAVE/PUNCH) Procedures: SKIN LEVEL 4 Comments: [id number]
[2022-06-24 18:59] LABS: Abs Immature Grans 0.01 10^3/uL (0.0-0.06); Absolute Basophil Count 0.03 10^3/uL (0.0-0.2); Absolute Eosinophil Count 0.12 10^3/uL (0.0-0.7); Absolute Lymphocyte Count 1.84 10^3/uL (1.2-3.4); Absolute Monocyte Count 0.57 10^3/uL (0.1-0.8); Absolute Neutrophil Count 2.51 10^3/uL (1.2-6.7); Basophils % 0.6; Eosinophils % 2.4; HCT 41.8 % (36.0-46.0); HGB 13.6 g/dL (11.2-15.7); Immature Grans % 0.2; Lymphocytes % 36.2; MCH 32.6 pg (27.0-33.0); MCHC 32.5 % (32.0-36.0); MCV 100 fL (80-95); MPV 9.4 fL (8.0-11.0); Monocytes % 11.2; Neutrophils % 49.4; Platelet Count 250 10^3/uL (130-400); RBC 4.17 10^6/uL (3.93-5.22); RDW 13.5 % (11.7-14.6); RDW-SD 50.4 fL; WBC 5.08 10^3/uL (4.4-10.8)
[2022-06-24 19:01] LABS: ESR 11 mm/hr (0-30)
[2022-06-24 19:17] LABS: ALT 15 U/L (14-59); AST 19 U/L (15-37); Albumin 3.6 g/dL (3.4-5.0); Alkaline Phosphatase 47 U/L (46-116); Anion Gap 10.5 mmol/L (3-11); BUN 26 mg/dL (7-18); Bilirubin, Total 0.6 mg/dL (0.2-1.0); CO2 28.5 mmol/L (21.0-32.0); CREATININE 0.9 mg/dL (0.55-1.02); Calcium 8.8 mg/dL (8.5-10.1); Calculated LDL 177 mg/dL (<100); Chloride 105 mmol/L (98-107); Cholesterol 265 mg/dL (<200); Estimated GFR 73.19 (mL/min/1.73m2); Glucose 85 mg/dL (74-106); HDL Cholesterol 73 mg/dL (40-60); Potassium 4.5 mmol/L (3.5-5.1); Sodium 144 mmol/L (136-145); Total Protein 6.7 g/dL (6.4-8.2); Triglyceride 78 mg/dL (<150)
== END 2022-06-24 12:25 | disposition home or self-care (01) ==
LOC: NCHCN 12:24
PROVIDERS: PCP Family Medicine; Visit Provider Family Medicine
DX: R63.4 Abnormal weight loss (principal); R53.83 Other fatigue; E78.89 Other lipoprotein metabolism disorders; C44.519 Basal cell carcinoma of skin of other part of trunk
CPT/HCPCS: 80053; 80061; 85652; 85025; 88305

== ENCOUNTER 2022-07-03 09:45 | Outpatient (CLI) | payer MEDICAID, SELFPAY ==
--- NOTE | 2022-07-03 09:15 | DI.RAD_ITS ---
Exam(s) XR KNEE LT 2V AP,LAT EXAM: XR KNEE LT 2V AP,LAT CLINICAL HISTORY: left knee f/u. TECHNIQUE: 2D digital imaging was performed. Two images were obtained. AP and lateral views were ob tained. COMPARISON: CR XR KNEE LT 2V AP,LAT from 05/15/2022 FINDINGS: BONES: There are stable post operative changes present. No fracture or dislocation. JOINTS: The orthopedic hardware is in good position. SOFT TISSUE: Normal. IMPRESSION: Stable postoperative changes. DATA REPOSITORY: RADIATION DOSE DELIVERED:
== END 2022-07-03 09:46 | disposition home or self-care (01) ==
LOC: DIORS 09:45
PROVIDERS: PCP Family Medicine; Referring Provider Family Medicine; Visit Provider Student in an Organized Health Care Education/Training Program
DX: M25.562 Pain in left knee (principal)
CPT/HCPCS: 73560

== ENCOUNTER 2022-07-09 12:39 | Outpatient (REF) | payer MEDICAID, SELFPAY ==
[2022-07-09 15:01] LABS: Bilirubin Negative (Negative); Blood Small (Negative); Clarity Clear (Clear); Glucose Negative (Negative); Ketones Negative (Negative); Leukocyte Esterase Trace (Negative); Nitrite Negative (Negative); Specific Gravity 1.015 (1.005-1.025); Urobilinogen 0.2 EU/dL (Up TO 0.2)
[2022-07-09 15:11] LABS: Bacteria Rare HPF (Negative); C & S Indicated? Yes; Casts Negative LPF (Negative); Crystals Negative HPF (Negative); Epithelial Cells Few HPF (Negative); Mucus Negative (Negative); WBC 20-50 HPF (0-5)
== END 2022-07-09 12:40 | disposition home or self-care (01) ==
LOC: NCHCN 12:39
PROVIDERS: PCP Family Medicine; Visit Provider Family Medicine
DX: N39.0 Urinary tract infection, site not specified (principal)
CPT/HCPCS: 87077; 81003; 81015; 87086; 87186

== ENCOUNTER 2022-08-29 09:59 | Emergency (ER) | payer MEDICAID, SELFPAY ==
[2022-08-29] VITALS (47 sets, daily range): BP systolic 94–128; BP diastolic 45–73; PULSE 56–82; RESP 8–27; TEMP 36.4–36.7; O2SAT 90–99
--- NOTE | 2022-08-29 10:00 | RT.EKG_ITS ---
APPROVED REPORT Exam: Resting ECG Reason for Exam: sob, chest pain Patient Location: E HR:61 bpm ECG Measurements Heart Rate 61 AXIS SD 125 P 18 QRSd 95 QRS 63 QT 413 T 68 QTc 418 Conclusion Sinus rhythm...normal P axis, V-rate 60- 99 I have reviewed and interpreted ECG and agree with software generated interpretation.
--- NOTE | 2022-08-29 10:05 | ED.GENADUL_ITS ---
Discharge Plan Disposition Patient Disposition: HOME Condition: Good Discharge Details Clinical Impression: Atypical chest pain Primary Care Provider: Gael Barksdale ED Provider: Kyle Landaverde Meds and New Rx's Prescriptions: New naproxen 500 mg tablet,delayed release (DR/EC) 500 mg PO BID Qty: 14 0RF Changed acetaminophen [Tylenol] 325 mg capsule 650 mg PO Q6H PRNQty: 0 0RF Discontinued ibuprofen 200 mg tablet 200 mg PO Q6H PRN Discharge Instructions Instructions: Chest Pain (ED) Additional Instructions: You were seen in the ED for chest pain that had been intermittent and became constant over the last 2 days with a severe localized tenderness. Your vital signs, EKG, laboratory studies, CT scan are all reassuring. Other than evidence of emphysema on your CT scan there is no evidence of blood clot, pneumonia, collapsed lung. Pain seems to be related to musculoskeletal chest wall pain. It did not improve with treatment for reflux but did seem to get better with NSAIDs. I have prescribed naproxen for you to begin tonight. You may take sue taminophen along with this. You should follow-up with primary care next week. Return to the ED for fever, new or worsening pain, worsening shortness of breath, abdominal pain, other concerns. Medical Decision Making Patient presenting with chest pressure which she has had on and off randomly for over a month. She did not feel that it was exertional. She did not get into see her primary care. She has now had constant chest pressure now with associated shortness of breath for a day or 2. She has had a little bit of a cough but no other URI symptoms and no fever. She has a separate very focal and very sharp chest pain when she pushes on the lower left ribs. Her EKG is normal with no ST changes. She has been having episodes of nausea as well. Differential includes cardiac disease, GERD, less likely PE. Patient dosed with aspirin laboratory studies, chest x-ray ordered. Patient initial laboratory studies reassuring with normal CBC, essentially normal electrolytes with chest slightly low magnesium at 1.7, normal troponin and liver function. D-dimer is positive. Will obtain CTA. Her chest x-ray is unremarkable. Still continues to complain of a burning pressure. We will try GI cocktail and IV pantoprazole pending results of CTA. CTA of chest negative for PE. She does have fairly significant emphysema by CT but no pneumothorax, consolidation, pleural effusion. Pain is not improved at all with GI cocktail and IV pantoprazole. Still complaining of of pain increasing with breathing and palpation as well as burning discomfort. She is given a dose of IV ketorolac with some improvement. I do not suspect cardiac etiology given constant pain for 2 days and negative troponin and normal EKG. Does not appear to be GI related. It is not related to PE or dissection. There is likely musculoskeletal in nature and I have discussed that with her. We will start her on prescription nonsteroidal and refer to primary care for follow-up next week. Return precautions discussed. Lab Data Lab results reviewed: Yes I reviewed the patient's lab results. ECG Data Attestation: I personally reviewed and interpreted this ECG (s) as follows: Prior ECG tracings: not available for review Interpretation: See EKG HPI General Mode of arrival: ambulatory . Date/Time Provider Initiated Documentation: 08/29/22 10:05 . Limitations to Documentation: no limitations . Information obtained by: patient . HPI Narrative: Patient presents to ED with complaint of chest pain and shortness of breath. Patient reports having chest pressure on and off for the last couple of months. It has been random in nature and not associated with exertion. For the last couple of days she has had more or less constant pressure which is now associat ed with shortness of breath which she has not had previously. She has a second sharp chest pain left lower rib that is very focal and only present when she presses on it. She had not noticed that previously. She has episodes of random nausea that sometimes is associated with chest pressure and other times not. She has never had diaphoresis or syncope. She denies any leg pain or leg swelling. She stopped smoking 1 year ago. She has no history of high cholesterol, diabetes, hypertension. She does have a cough which is nonproductive, occasionally some clear sputum. Denies fever, URI symptoms, abdominal pain, back pain. Related Data Home Medications Medication Instructions Recorded Confirmed acetaminophen 325 mg capsule 650 mg PO Q6H PRN #0 caps 08/29/22 07/03/22 (Tylenol) naproxen 500 mg tablet,delayed 500 mg PO BID #14 tabs 08/29/22 release Previous Rx's Medication Instructions Recorded acetaminophen 325 mg capsule 650 mg PO Q6H PRN #0 caps 08/29/22 (Tylenol) naproxen 500 mg tablet,delayed 500 mg PO BID #14 tabs 08/29/22 release Allergies Allergy/AdvReac Type Severity Reaction Status Date / Time No Known Allergies Allergy Verified 07/03/22 09:25 General SARTHAK: 3 Review of Systems Narrative: 08/09 Review of Systems completed and is negative except as stated above in HPI (Systems reviewed: Const, Eyes, ENT, Resp, CV, GI, , MSK, Skin, Neuro) PFSH All Active Problems (Updated 08/29/22 @ 14:52 by Kyle Landaverde MD) Atypical chest pain (Acute) Arthritis of knee, left (Acute) Medical History (Updated 08/29/22 @ 14:52 by Kyle Landaverde MD) Tear of medial meniscus of left knee Injected: 01/07/2022 Surgical History (Updated 08/29/22 @ 10:35 by Kyle Landaverde MD) History of appendectomy History of partial knee replacement Social History Smoking/Tobacco Use Status: Former Tobacco Use Smoking risk assessment performed?: Yes Alcohol Intake: former Drug use: Daily Substance use type: marijuana Current gender identity: female Do you feel safe at home: Yes Do you feel safe in your relationship?: Yes Exam Narrative Exam Narrative: Const: WDWN female in NAD. HEENT: NC/AT. Normal facial exam. Eyes: Normal conjunctiva and sclera. Neck: Supple. Trachea midline. Lungs: Normal respiratory effort. Lungs are clear. Very focal point tenderness left lower/anterior rib. Cor: RRR without murmur/gallop. Good radial pulses. GI: Soft. NT/ND. No guarding or rebound. Neuro: A+O x 3. Normal speech, mentation, gait. Cranial nerves II - XII grossly intact. No gross motor or sensory deficit. Ext: No C/C/E. No calf tenderness. Skin: Warm and dry without rash.
--- NOTE | 2022-08-29 10:15 | DI.RAD_ITS ---
Exam(s) XR PORTABLE CHEST AP EXAM: XR PORTABLE CHEST AP CLINICAL HISTORY: CP/SOB. TECHNIQUE: 2D digital imaging was performed. COMPARISON: No exams were available for comparison FINDINGS: LUNGS: Clear. No pleural abnormality seen. HEART: Normal. MEDIASTINUM: Normal. OTHER FINDINGS: None. IMPRESSION: No acute pulmonary findings. DATA REPOSITORY: RADIATION DOSE DELIVERED: Total DLP
[2022-08-29] MEDS: Aspirin 81 MG CHEW 324 MG CH (10:38)
[2022-08-29 10:47] LABS: Abs Immature Grans 0.01 10^3/uL (0.0-0.06); Absolute Basophil Count 0.04 10^3/uL (0.0-0.2); Absolute Eosinophil Count 0.11 10^3/uL (0.0-0.7); Absolute Lymphocyte Count 1.78 10^3/uL (1.2-3.4); Absolute Monocyte Count 0.59 10^3/uL (0.1-0.8); Absolute Neutrophil Count 3.42 10^3/uL (1.2-6.7); Basophils % 0.7; Eosinophils % 1.8; HCT 44.1 % (36.0-46.0); HGB 14.7 g/dL (11.2-15.7); Immature Grans % 0.2; Lymphocytes % 29.9; MCH 32.2 pg (27.0-33.0); MCHC 33.3 % (32.0-36.0); MCV 97 fL (80-95); MPV 8.9 fL (8.0-11.0); Monocytes % 9.9; Neutrophils % 57.5; Platelet Count 231 10^3/uL (130-400); RBC 4.56 10^6/uL (3.93-5.22); RDW 13.4 % (11.7-14.6); RDW-SD 48.1 fL; WBC 5.95 10^3/uL (4.4-10.8)
[2022-08-29 11:05] LABS: ALT 12 U/L (14-59); AST 18 U/L (15-37); Albumin 3.8 g/dL (3.4-5.0); Alkaline Phosphatase 50 U/L (46-116); Anion Gap 9.1 mmol/L (3-11); BUN 22 mg/dL (7-18); Bilirubin, Total 0.8 mg/dL (0.2-1.0); CO2 26.9 mmol/L (21.0-32.0); Calcium 9.5 mg/dL (8.5-10.1); Chloride 104 mmol/L (98-107); Estimated GFR 64.49 (mL/min/1.73m2); Glucose 80 mg/dL (74-106); Magnesium 1.7 mg/dL (1.8-2.4); Sodium 140 mmol/L (136-145); Total Protein 7.3 g/dL (6.4-8.2); Troponin I < 50 ng/L (<or=60)
[2022-08-29 11:21] LABS: D-Dimer 650 ng/mlFEU (<500)
--- NOTE | 2022-08-29 11:30 | DI.CT_ITS ---
Exam(s) CT CHEST PE CTA EXAM: CT CHEST PE CTA CLINICAL HISTORY: CP, SOB, + ddimer. TECHNIQUE: Imaging Protocol: Axial CT angiography was performed with multi-slice acquisition and mu lti-planar and/or 3D reconstructions. CONTRAST MATERIAL: Intravenous: Omnipaque 350 Contrast volume:structured data in ml COMPARISON: No exams were available for comparison FINDINGS: CT angiography of the chest was performed with intravenous infusion of 100 cc of Omnipaque 350. The lungs are clear with moderate central lobar pulmonary emphysema. No pleural effusion. Tracheobro nchial tree appears intact. No evidence of pulmonary embolic disease. Thoracic aorta is of normal diameter, no thoracic aortic an eurysm or dissection, major branch vessels appear intact. No mediastinal or hilar adenopathy. Images obtained through the upper abdomen show unremarkable appearance of the visualized portions of the liver, spleen, pancreas, adrenals, and kidneys. IMPRESSION: Negative CT angiogram of the chest. No evidence of pulmonary embolic disease. RADIATION DOSE DELIVERED: 277.92mGy.cm Total DLP 277.92mGy.cm Total DLP !Error CTDIvol DATA REPOSITORY: All CT scans at this facility are submitted to the National Radiology Data Registry (NRDR) Dose Index Registry (DIR) with the [employer] (A[employer]). RADIATION OPTIMIZATION: All CT scans at this facility use at least one of these dose optimization te chniques: automated exposure control; mA and/or kV adjustment per patient size (includes targeted exa ms where dose is matched to clinical indication); or iterative reconstruction.
[2022-08-29] MEDS: Pantoprazole 40 MG VIAL IVP (11:51)
[2022-08-29] MEDS: Ketorolac 15 MG/ML VIAL IVP (13:52)
[2022-08-29] MEDS: Normal Saline Flush 10 ML SYR IVP (13:53)
[2022-08-29] MEDS: LORazepam 0.5 MG TAB PO (15:15)
== END 2022-08-29 15:22 | disposition home or self-care (01) ==
PROVIDERS: Emergency Provider Emergency Medicine; PCP Family Medicine
DX: R07.89 Other chest pain (principal); J43.9 Emphysema, unspecified; Z87.891 Personal history of nicotine dependence
CPT/HCPCS: 71275; 80053; 93005; 96374; 96375; 99285; 71045; 83735; 84484; 85025; 85379; 93010; 99284; J1885

== ENCOUNTER 2022-09-20 15:53 | Outpatient (REF) | payer MEDICAID, SELFPAY ==
[2022-09-20 20:51] LABS: Abs Immature Grans 0.01 10^3/uL (0.0-0.06); Absolute Basophil Count 0.04 10^3/uL (0.0-0.2); Absolute Eosinophil Count 0.08 10^3/uL (0.0-0.7); Absolute Lymphocyte Count 1.73 10^3/uL (1.2-3.4); Absolute Monocyte Count 0.48 10^3/uL (0.1-0.8); Absolute Neutrophil Count 2.79 10^3/uL (1.2-6.7); Basophils % 0.8; Eosinophils % 1.6; HCT 41.2 % (36.0-46.0); HGB 13.5 g/dL (11.2-15.7); Immature Grans % 0.2; Lymphocytes % 33.7; MCH 31.9 pg (27.0-33.0); MCHC 32.8 % (32.0-36.0); MCV 97 fL (80-95); MPV 9.1 fL (8.0-11.0); Monocytes % 9.4; Neutrophils % 54.3; Platelet Count 239 10^3/uL (130-400); RBC 4.23 10^6/uL (3.93-5.22); RDW 13.1 % (11.7-14.6); RDW-SD 47.1 fL; WBC 5.13 10^3/uL (4.4-10.8)
[2022-09-20 21:01] LABS: ALT 15 U/L (14-59); AST 20 U/L (15-37); Albumin 3.7 g/dL (3.4-5.0); Alkaline Phosphatase 46 U/L (46-116); Anion Gap 5.1 mmol/L (3-11); BUN 26 mg/dL (7-18); Bilirubin, Total 0.5 mg/dL (0.2-1.0); CO2 27.9 mmol/L (21.0-32.0); CREATININE 1.1 mg/dL (0.55-1.02); Chloride 105 mmol/L (98-107); Estimated GFR 57.52 (mL/min/1.73m2); Glucose 96 mg/dL (74-106); Potassium 4.2 mmol/L (3.5-5.1); Sodium 138 mmol/L (136-145); Total Protein 6.9 g/dL (6.4-8.2)
[2022-09-20 21:03] LABS: ESR 6 mm/hr (0-30)
[2022-09-23 10:45] LABS: HIV-1/2 Ag & Ab Screen Negative (Negative)
== END 2022-09-20 15:54 | disposition home or self-care (01) ==
LOC: NCHCN 15:53
PROVIDERS: PCP Family Medicine; Visit Provider Family Medicine
DX: R63.4 Abnormal weight loss (principal); F41.8 Other specified anxiety disorders
CPT/HCPCS: 80053; 85652; 87389; 85025

== ENCOUNTER → 2022-10-10 02:16 | Outpatient (CLI) | payer MEDICAID, SELFPAY ==
--- NOTE | 2022-10-10 11:13 | DI.CT_ITS ---
Exam(s) CT ABDOMEN PELVIS W EXAM: CT ABDOMEN PELVIS W CLINICAL HISTORY: WT LOSS, R63.4 TECHNIQUE: Imaging Protocol: Axial computed tomography images with coronal and sagittal reformatted images were created and reviewed CONTRAST MATERIAL: Intravenous: Omnipaque 350 Contrast volume:100 mL Oral: Yes COMPARISON: CT CT CHEST PE CTA from 08/29/2022 FINDINGS: ABDOMEN: Lung Bases: Normal where visualized. Liver: Normal density. No measurable mass. Portal, Superior Mesenteric, and Splenic Veins: Unremarkable. Gallbladder and Biliary Tract: No radiodense calculus or dilation. Pancreas: Normal density, no abnormal calcifications or inflammatory process. Spleen: Normal. Adrenals: No masses seen. Kidneys: Normal size, contour and axis. No radiodense stones or obstructive uropathy. No masses seen. Abdominal Aorta: Abdominal portion non-dilated. Mild atherosclerosis. Bowel: No obstruction or bowel wall thickening. There is no evidence of appendicitis. There are dive rticula seen in the sigmoid colon but no evidence of acute diverticulitis. Peritoneal Cavity: No ascites, collection or mesenteric inflammatory response. No free air. Lymph Nodes: Within normal limits. Bones: Within normal limits for the patient's age. Soft Tissues: The inferior aspect of the left breast implant is seen. PELVIS: Bladder: Symmetric distention, no gross wall thickening. Reproductive Organs: Unremarkable as visualized. Lymph Nodes: Within normal limits. Bones: Within normal limits for the patient's age. IMPRESSION: No acute abdominal or pelvic process. RADIATION DOSE DELIVERED: 691.41mGy.cm Total DLP DATA REPOSITORY: All CT scans at this facility are submitted to the National Radiology Data Registry (NRDR) Dose Index Registry (DIR) with the [employer] (ACR). RADIATION OPTIMIZATION: All CT scans at this facility use at least one of these dose optimization te chniques: automated exposure control; mA and/or kV adjustment per patient size (includes targeted exa ms where dose is matched to clinical indication); or iterative reconstruction.
[2022-10-10] MEDS: Barium Sulfate 2% W/V-Berry Smoothie 450 ML BTL 900 ML PO (11:23)
[2022-10-10] MEDS: Omnipaque 350 MG/ML 100 ML BTL IJ (11:24)
[2022-10-10] MEDS: Normal Saline Flush 10 ML SYR IVP (11:25)
== END ==
PROVIDERS: PCP Family Medicine; Visit Provider Family Medicine
DX: R63.4 Abnormal weight loss (principal)
CPT/HCPCS: 74177; J3490

== ENCOUNTER 2023-02-26 13:35 | Outpatient (CLI) | payer MEDICAID, SELFPAY ==
--- NOTE | 2023-02-26 13:30 | DI.RAD_ITS ---
Exam(s) XR KNEE LT 2V AP,LAT EXAM: XR KNEE LT 2V AP,LAT CLINICAL HISTORY: surgical follow up. TECHNIQUE: 2D digital imaging was performed. Two images were obtained. AP and lateral views were ob tained. COMPARISON: CR XR KNEE LT 2V AP,LAT from 07/03/2022 FINDINGS: BONES: There are stable post operative changes present. No fracture or dislocation. JOINTS: The orthopedic hardware is in good position. No evidence of hardware loosening. SOFT TISSUE: Normal. IMPRESSION: Stable postoperative changes. DATA REPOSITORY: RADIATION DOSE DELIVERED:
== END 2023-02-26 13:36 | disposition home or self-care (01) ==
LOC: DIORS 13:35
PROVIDERS: PCP Family Medicine; Referring Provider Family Medicine; Visit Provider Physician Assistant
DX: M17.12 Unilateral primary osteoarthritis, left knee (principal); Z48.89 Encounter for other specified surgical aftercare
CPT/HCPCS: 73560